=== PATIENT | male | born 1995 | race Hispanic/Latino ===

== ENCOUNTER 2025-03-02 00:20 | Emergency (ER) | payer SELFPAY ==
[~2025-03-02] VITALS: Ht 172.7 cm; Wt 99.8 kg
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
[2025-03-02] MEDS ORDERED: NAPR-1194 PO (01:11)
--- NOTE | 2025-03-02 01:33 | HMCIMG ---
EXAM: CR right ankle, 4 Views. CLINICAL HISTORY: ANKLE INJURY/SWELLING COMPARISON: None provided. FINDINGS: BONES: Acute fracture of the distal fibular shaft JOINTS: The joint spaces appear within normal limits. No dislocation. No radiographic evidence of a joint effusion. SOFT TISSUES: Mild soft tissue swelling around the ankle joint. IMPRESSION: Acute fracture of the distal fibula. /[place]
[2025-03-02 02:06] VITALS: BP 135/66; PULSE 98; RESP 18; TEMP 98.1; O2SAT 97
== END 2025-03-02 02:04 | disposition home or self-care (01) ==
LOC: EDH 00:20
DX: S82.61XA Displaced fracture of lateral malleolus of right fibula, initial encounter for closed fracture (principal); Y04.8XXA Assault by other bodily force, initial encounter; Y93.89 Activity, other specified; Y92.89 Other specified places as the place of occurrence of the external cause; Y99.8 Other external cause status
CPT/HCPCS: 99283; 29515; 73610; 96372; J1885